=== PATIENT | male | born 1985 | race Caucasian/White ===

== ENCOUNTER 2025-03-21 07:55 | Inpatient (IN) | payer SELFPAY ==
[2025-03-21 11:15] VITALS: BMI 21.9
[2025-03-21] MEDS ORDERED: Calcium Carbonate 500 MG ChewTAB PO PRN (11:56)
[2025-03-21] MEDS ORDERED: Senokot S 8.6-50 MG TAB PO PRN (11:56)
[2025-03-21] MEDS ORDERED: Acetaminophen 325 MG TAB PO PRN (11:56)
[2025-03-21] MEDS ORDERED: Ondansetron PF 4 MG/2 ML Vial IVP PRN (11:56)
[2025-03-21] MEDS ORDERED: Vancomycin 1 GM in Premix 1 BAG IVPB SCH (12:00)
[2025-03-21] MEDS ORDERED: Electrolyte Replacement Protocol 1 EACH FS SCH (12:00)
[2025-03-21] MEDS ORDERED: Potassium Chloride 20 MEQ in Premix 1 BAG IVPB PRN (13:30)
[2025-03-21] MEDS ORDERED: PHOS-NAK 1 PKT PACK PO PRN (13:30)
[2025-03-21] MEDS ORDERED: Magnesium 2 GM/50 ML(in water) 2 GM in Premix 1 BAG IVPB PRN (13:30)
[2025-03-21] MEDS: Vancomycin 1 GM in Premix 1 BAG IVPB SCH (13:34)
[2025-03-22 04:56] LABS: #Basophils 0.04 10x3/uL (0.0-0.2); #Eosinophils 0.21 10x3/uL (0.0-0.7); #Monocytes 0.54 10x3/uL (0.11-0.59); #Neutrophils 3.28 10x3/uL (1.40-6.50); %Basophils 0.7 % (0.0-1.0); %Eosinophils 3.7 % (0.0-10.0); %Lymphocytes 28.9 % (21.0-51.0); %Monocytes 9.4 % (0.0-10.0); %Neutrophils 57.1 % (42.0-75.0); Hematocrit 39.0 % (42.0-52.0); Hemoglobin 12.3 g/dL (14.0-18.0); Mean Corpuscular Hemoglobin 26.4 pg (27.0-31.0); Mean Corpuscular Volume 83.7 fL (78.0-98.0); Platelet Count 221 10x3/uL (130-400); Red Blood Cell (RBC) Count 4.66 mill/uL (4.70-6.10); White Blood Cell (WBC) Count 5.74 10x3/uL (4.8-10.8)
[2025-03-22 05:08] LABS: Anion Gap 14 mmol/L (10-20); BUN (Urea Nitrogen) 7 mg/dL (8.9-20.6); Calc. Creatinine Clearance 158 mL/min (70-130); Calcium 8.5 mg/dL (7.8-10.44); Carbon Dioxide 23 mmol/L (22-29); Chloride 104 mmol/L (98-107); Glucose 92 mg/dL (70-105); Potassium 3.8 mmol/L (3.5-5.1); Sodium 137 mmol/L (136-145)
[2025-03-22 05:12] LABS: Vancomycin, Random 12.0 ug/mL (See Comment)
[2025-03-22] MEDS: Enoxaparin 40 MG (0.4 mL) SYRINGE SC SCH (08:09)
[2025-03-22] MEDS: Melatonin 3 MG TAB PO PRN (21:29)
[2025-03-23 04:00] VITALS: BP 109/77; TEMP 98
[2025-03-23 05:16] LABS: #Basophils 0.05 10x3/uL (0.0-0.2); #Eosinophils 0.19 10x3/uL (0.0-0.7); #Monocytes 0.42 10x3/uL (0.11-0.59); #Neutrophils 2.05 10x3/uL (1.40-6.50); %Basophils 1.2 % (0.0-1.0); %Eosinophils 4.5 % (0.0-10.0); %Lymphocytes 36.2 % (21.0-51.0); %Monocytes 9.9 % (0.0-10.0); %Neutrophils 48.0 % (42.0-75.0); Hematocrit 40.3 % (42.0-52.0); Hemoglobin 12.9 g/dL (14.0-18.0); Mean Corpuscular Hemoglobin 26.3 pg (27.0-31.0); Mean Corpuscular Volume 82.2 fL (78.0-98.0); Platelet Count 245 10x3/uL (130-400); Red Blood Cell (RBC) Count 4.90 mill/uL (4.70-6.10); White Blood Cell (WBC) Count 4.26 10x3/uL (4.8-10.8)
[2025-03-23 05:26] LABS: Anion Gap 11 mmol/L (10-20); BUN (Urea Nitrogen) 6 mg/dL (8.9-20.6); Calc. Creatinine Clearance 185 mL/min (70-130); Calcium 8.6 mg/dL (7.8-10.44); Carbon Dioxide 25 mmol/L (22-29); Chloride 106 mmol/L (98-107); Glucose 92 mg/dL (70-105); Potassium 4.0 mmol/L (3.5-5.1); Sodium 138 mmol/L (136-145)
[2025-03-23 05:27] LABS: CRP, High Sensitivity at Bryan 1.33 mg/dL (< or = 0.5)
[2025-03-23] MEDS ORDERED: Bacitracin 1 PK TOP SCH (09:00)
== END 2025-03-23 08:43 | disposition left against medical advice (07) | DRG 872 ==
LOC: OBS 07:55 → OBSVTOIN 03-22 12:54
PROVIDERS: ADMIT Internal Medicine; ATTEND Internal Medicine
DX: A41.9 Sepsis, unspecified organism (principal); L03.116 Cellulitis of left lower limb; Z98.890 Other specified postprocedural states; F17.210 Nicotine dependence, cigarettes, uncomplicated; F15.90 Other stimulant use, unspecified, uncomplicated; Z53.29 Procedure and treatment not carried out because of patient's decision for other reasons
CPT/HCPCS: 36415; 80048; 80202; 85025; 86141; 87081; 96374; 96375; 96376; 97139; G0378; J0692; J2272; J3373; J7030